=== PATIENT | female | born 1935 | race Caucasian/White ===

== ENCOUNTER → 2021-12-24 | Outpatient (CLI) | payer OTHER ==
[~2021-12-24] MED LIST: ATEN25; ATEN50 PO; ESCI10; ESCI20 PO; EYE GTTS; FLEC100; FLEC50 PO; FURO40; FURO40 PO; HYDACE5 PO; HYDCHLSU; LISHYD2012; LISHYD2012 PO; LORA10ER; LOVA20; LOVA40; POTCHL10ER PO; PROACE100 PO; RXPROACE PO; TOCO400; WARF10; WARF10 PO; WARF7.5; WARF7.5 PO; [UNRECOGNIZED DRUG - REMARK]
[2021-12-24 15:03] LABS: Source, Urine Voided
[2021-12-24 16:21] LABS: Appearance, Urine Clear (Clear); Bilirubin, Urine Neg (Neg); Blood, Urine Neg (Neg); Glucose Qualitative, Urine Neg (Neg); Ketones, Urine Neg (Neg); Leukocyte Esterase, Urine Neg (Neg); Nitrite, Urine Neg (Neg); Protein, Urine Neg (Neg); Urobilinogen, Urine NORM (Normal)
[2021-12-24 16:27] LABS: Color, Urine Pale Yellow (P-Yellow)
== END | disposition home or self-care (01) ==
LOC: LAB SHORT 12:40
PROVIDERS: Internal Medicine Nephrology
DX: N18.32 Chronic kidney disease, stage 3b (principal)
CPT/HCPCS: 81003